=== PATIENT | female | born 1975 | race Two or more races ===

== ENCOUNTER 2019-01-31 01:57 | Emergency (ER) | payer OTHER ==
[~2019-01-31] VITALS: Ht 167.6 cm; Wt 97.1 kg
[~2019-01-31 01:57] MED LIST: NITR-39 PO; OLAN10TA29 PO; SERT-274 PO
[2019-01-31 02:25] LABS: Eosinophils # (auto) 0.1 uL; White Blood Cell 9.2 10^3/uL (4.4-10.8)
[2019-01-31 02:27] LABS: Basophils # (auto) 0 uL; Basophils % (auto) 0.4 % (0.0-2.0); Eosinophils % (auto) 0.9 % (0.0-7.0); Hematocrit 23.6 % (36.0-46.0); Lymphocytes # (auto) 2.9 uL; Lymphocytes % (auto) 31.3 % (10.0-50.0); Mean Corpuscular Hemoglobin 17.5 pg (28.0-32.0); Mean Corpuscular Hgb Conc. 28.6 g/dL (32.0-36.0); Mean Corpuscular Volume 61.1 fL (80.0-100.0); Monocytes # (auto) 0.5 uL; Monocytes % (auto) 5.8 % (0.0-12.0); Neutrophils # (auto) 5.7 uL; Neutrophils % (auto) 61.6 % (37.0-80.0); Platelet Count (auto) 274 10^3/uL (140-450); Red Blood Cells 3.86 10^6/uL (4.0-5.20)
[2019-01-31 02:39] LABS: Albumin 3.3 g/dL (3.4-5.0); Amylase 26 U/L (25-115); Anion Gap 11 (5-15); BUN/Creatinine Ratio 14.9; Blood Urea Nitrogen 11 mg/dL (7-18); Calcium 8.1 mg/dL (8.5-10.1); Carbon Dioxide 22 mmol/L (21-32); Chloride 108 mmol/L (98-107); GFR African American 110 mL/min; GFR Non-African American 91 mL/min; Glucose 104 mg/dL (74-106); Lipase 68 U/L (73-393); Potassium 3.6 mmol/L (3.5-5.1); Sodium 141 mmol/L (136-145)
[2019-01-31 02:47] LABS: Alanine Aminotransferase 13 U/L (13-56); Alkaline Phosphatase 141 U/L (45-117); Aspartate Aminotransferase 14 U/L (15-37); Bilirubin, Total 0.4 mg/dL (0.2-1.0)
[2019-01-31 03:03] LABS: Red Cell Distribution Width 21.6 % (11.8-14.3)
[2019-01-31 03:05] LABS: Hemoglobin 6.7 g/dL (12.2-16.2)
[2019-01-31 04:16] LABS: Urine Bacteria FEW /hpf (None Seen); Urine Blood Negative /uL (Negative); Urine Specific Gravity 1.009 (1.001-1.035); Urine WBC 1 /hpf (0 - 5)
[2019-01-31] MEDS ORDERED: ONDANSETRON HCL 4 MG/2 ML VIAL IV ONE ×3 (05:15→13:30)
[2019-01-31] MEDS ORDERED: MORPHINE SULFATE 4 MG/ML SYR/VIAL IV ONE ×3 (05:15→13:30)
[2019-01-31] MEDS ORDERED: LEVOFLOXACIN 750MG 150 ML IV ONE (15:15)
[2019-01-31 17:30] VITALS: BP 131/69
[2019-02-01] MEDS ORDERED: ACET30TA15 PO (12:30)
== END 2019-01-31 17:45 | disposition home or self-care (01) ==
LOC: ER 02:03
DX: N20.0 Calculus of kidney (principal); D64.9 Anemia, unspecified
CPT/HCPCS: 36415; 71046; 74176; 80053; 81001; 82150; 83690; 85025; 86850; 86900; 86901; 87040; 96365; 96366; 96375; 96376; 99284; J1956; J2270; J2405